=== PATIENT | female | born 1990 | race African-American/Black ===

== ENCOUNTER 2017-05-27 15:22 | Emergency (ER) | payer OTHER ==
[~2017-05-27] VITALS: Ht 167.6 cm; Wt 70.3 kg
[~2017-05-27 15:22] MED LIST: CIPRO PO
== END 2017-05-27 15:53 | disposition home or self-care (01) ==
LOC: CFTX 15:22 → CED 15:22 → CFTX 15:50
DX: H65.93 Unspecified nonsuppurative otitis media, bilateral (principal); F17.200 Nicotine dependence, unspecified, uncomplicated
CPT/HCPCS: 99283